=== PATIENT | male | born 1995 | race Caucasian/White ===

== ENCOUNTER 2016-07-01 00:37 | Emergency (ER) | payer MEDICAID ==
[2016-07-01] MEDS ORDERED: KETOROLAC 30 MG/ML VIAL IVP ONE (01:05)
[2016-07-01] MEDS ORDERED: 0.9 % SODIUM CHLORIDE 1,000 ML BAG IV ONE (01:05)
--- NOTE | 2016-07-01 01:10 | Emergency Department Record ---
History of Present Illness - General Chief Complaint: Abdominal Pain Stated Complaint: POS KIDNEY STONES Time Seen by Provider: 07/01/16 01:04 Source: Patient Mode of Arrival: Ambulatory Limitations: No limitations - History of Present Illness Initial Comments: 21 yo male presents with left flank pain intermittently since . He reports he was seen at [facility] [place] and diagnosed with a renal stone. He states it was a 4mm stone on the left side. He has been having intermittent left flank pain since that time. No retention. No fevers. He was discharged with a urology referral, [facility], [facility], and [facility]. He does not know the name of the urologist he was referred to for follow up. PCP is Dr Walter. No hematuria. No retention. No current back pain. No vomiting. No diarrhea. No rash. MD Complaint: Abdominal pain, Flank pain Onset/Timin -: Hour(s) Location: LLQ Radiation: L flank, Other Severity: Severe Quality: Other Consistency: Constant Improves With: Nothing Worsens With: Nothing Context: Other Associated Symptoms: Other - Related Data Home Medications Medication Instructions Recorded Confirmed Last Taken Cephalexin [Cephalexin] 500 mg PO ASDIR 07/01/16 07/01/16 Unknown Hydrocodone/Acetaminophen 1 tab PO Q8H 07/01/16 07/01/16 Unknown [Hydrocodone/Acetaminophen 5mg/325mg] Ondansetron [Ondansetron Odt] 4 mg PO ASDIR 07/01/16 07/01/16 Unknown Tamsulosin HCl [Tamsulosin HCl] 0.4 mg PO ASDIR 07/01/16 07/01/16 Unknown Allergies Allergy/AdvReac Type Severity Reaction Status Date / Time Penicillins Allergy RASH Verified 01/13/16 14:44 Travel Screening - Travel/Exposure Within Last 30 Days Have you traveled within the last 30 days?: No - Travel/Exposure Within Last Year Have you traveled outside the [place] in the last year?: No - Additonal Travel Details Have you been exposed to anyone with a communicable illness?: No - Travel Symptoms Symptom Screening: None Review of Systems Constitutional: Denies: Chills, Fever, Malaise, Night sweats, Weakness Eyes: Denies: Eye discharge ENT: Denies: Congestion, Throat pain Respiratory: Denies: Cough, Dyspnea, Hemoptysis, Stridor, Wheezes Cardiovascular: Denies: Chest pain, Palpitations, Syncope Endocrine: Denies: Fatigue Gastrointestinal: Reports: Abdominal pain. Denies: Constipation, Diarrhea, Hematemesis, Hematochezia, Nausea, Vomiting Genitourinary: Reports: Testicular pain (left sided,). Denies: Frequency, Hematuria, Incontinence, Retention, Testicular mass, Urgency Musculoskeletal: Denies: Arthralgia, Back pain, Myalgia, Neck pain Skin: Denies: Bruising, Change in color, Rash Neurological: Denies: Confusion, Headache Psychiatric: Denies: Anxiety Hematological/Lymphatic: Denies: Blood Clots, Easy bleeding, Easy bruising, Swollen glands Past Medical History - SOCIAL HISTORY Smoking Status: Current every day smoker Alcohol Use: None Drug Use: None - RESPIRATORY Hx Respiratory Disorders: No - CARDIOVASCULAR Hx Cardio Disorders: No - NEURO Hx Neuro Disorders: Yes Hx Headaches: Yes (hx of migraines) - GI Hx GI Disorders: Yes Hx Abdominal Pain: Yes Hx Pancreatitis: Yes - Hx Genitourinary Disorders: No - ENDOCRINE Hx Endocrine Disorders: No Hx Diabetes: No Hx Thyroid Disease: No - MUSCULOSKELETAL Hx Musculoskeletal Disorders: No - PSYCH Hx Psych Problems: Yes Hx Anxiety: Yes Hx Depression: Yes Comment:: PTSD - HEMATOLOGY/ONCOLOGY Hx Hematology/Oncology Disorders: No Family Medical History Any Significant Family History?: Yes Family Hx Comment (NOT TO BE USED IN PLACE OF ITEMS BELOW): Paternal grandfather has crohn's disease. Mother has MS Hx Alcohol Use: Father, Grandparents Hx Anxiety: Father, Grandparents Hx Cancer: Grandparents Hx Diabetes: Grandparents Hx Heart Disease: Grandparents *Heart Comment: Afib Hx HTN: Grandparents Physical Exam - General General Appearance: Alert, Oriented x3, Cooperative, No acute distress Limitations: No limitations - Head Head exam: Normal inspection - Eye Eye exam: Normal appearance, PERRL - ENT ENT exam: Normal exam - Neck Neck exam: Normal inspection - Respiratory Respiratory exam: negative: Accessory muscle use, Respiratory distress - Cardiovascular Cardiovascular Exam: Regular rate, Normal rhythm, Normal heart sounds - GI/Abdominal GI/Abdominal exam: Soft. negative: Distended, Guarding, Rebound, Rigid, Tenderness - Rectal Rectal exam: Deferred - exam: Normal inspection, Other (non tender, non swollen testicle on the left , freely mobile). negative: Scrotal swelling, Testicular tenderness, Urethral discharge - Extremities Extremities exam: Normal inspection, Full ROM, Normal capillary refill. negative: Tenderness - Back Back exam: Reports: Normal inspection, Full ROM. Denies: CVA tenderness (R), CVA tenderness (L), Muscle spasm, Paraspinal tenderness, Rash noted, Tenderness , Vertebral tenderness - Neurological Neurological exam: Alert, Normal gait, Oriented X3, Reflexes normal - Psychiatric Psychiatric exam: Normal affect, Normal mood - Skin Skin exam: Dry, Intact, Normal color, Warm Course Vital Signs 07/01/16 00:45 Temperature 97.3 F L Pulse Rate 108 H Respiratory 24 Rate Blood Pressure 133/86 Pulse Ox 100 - Reevaluation(s) Reevaluation #1: The labs were reviewed No acute changes on the CBC,CMP or UA. No blood on the UA 07/01/16 01:52 Reevaluation #2: Still waiting for the requested [facility] records 07/01/16 02:17 Reevaluation #3: The [facility] records were reviewed CT scan on 06/28/16 was read as large amount of stool, negative for urinary tract calculus or HN US unchanged from prior of the scrotum. No acute process. 07/01/16 02:41 07/01/16 02:56 Reevaluation #4: I explained to him that the CT scan performed at 03:32 on 06/28/16 was read as no renal stones. I explained that only finding was large amount of stool. I explained that narcotics can cause constipation and should be avoided. He was encouraged to stay hydrated and call his doctor in the morning. 07/01/16 02:56 Medical Decision Making - Lab Data Result diagrams: 07/01/16 01:25 07/01/16 01:25 Disposition Disposition: Discharge Clinical Impression: Abdominal pain Qualifiers: Abdominal location: generalized Qualified Code(s): R10.84 - Generalized abdominal pain Disposition: Home, Self-Care Condition: (1) Good Instructions: Abdominal Pain (ED) Additional Instructions: Call your doctor today for follow up Stay hydrated Add fiber to your diet for constipation Forms: Patient Portal Access Time of Disposition: 02:43
[2016-07-01 01:30] LABS: BASO % 0.1 % (0-6); EOS % 1.5 % (0-6); GRAN % 52.4 % (47-80); HEMATOCRIT 45.1 % (42.0-52.0); HEMOGLOBIN 15.5 gm/dl (14.0-18.0); LYMPH % 39.3 % (16-45); MEAN CELL VOLUME 81.6 fl (81-97); MEAN CORPUSCULAR HGB CONC 34.4 g/dl (32-36); MEAN PLATELET VOLUME 9.9 fl (7.4-10.4); MONO % 6.7 % (0-9); PLATELET COUNT 303 K/uL (130-400); RED BLOOD COUNT 5.53 M/uL (4.40-5.70); RED CELL DISTRIBUTION WIDTH 12.5 % (11.5-14.5); WHITE BLOOD COUNT W/O DIFF 7.3 K/uL (4.2-12.2)
[2016-07-01 01:35] LABS: URINE APPEARANCE CLEAR; URINE BILIRUBIN NEGATIVE (NEGATIVE); URINE BLOOD NEGATIVE (NEGATIVE); URINE COLOR YELLOW; URINE GLUCOSE (UA) NEGATIVE (NEGATIVE); URINE KETONE 15 mg/dL (NEGATIVE); URINE LEUKOCYTE ESTERASE NEGATIVE (NEGATIVE); URINE NITRITE NEGATIVE (NEGATIVE); URINE PROTEIN NEGATIVE (NEGATIVE); URINE UROBILINOGEN 0.2 E.U./dL (0.20 - 1.00)
[2016-07-01 01:44] LABS: BLOOD UREA NITROGEN 17 mg/dL (9-20); CREATININE 0.9 mg/dL (0.66-1.25); EST GLOMERULAR FILTRATION RATE > 60 ml/min; GLUCOSE,RANDOM 83 mg/dL (70-110)
== END 2016-07-01 02:59 | disposition home or self-care (01) ==
LOC: ER 00:37
DX: R10.84 Generalized abdominal pain (principal); K59.00 Constipation, unspecified; Z87.442 Personal history of urinary calculi
CPT/HCPCS: 99284 ×2; 96374; 85025; 80048; 81003; J1885; J7030